=== PATIENT | female | born 1980 | race Caucasian/White ===

== ENCOUNTER 2024-01-02 19:06 | Emergency (ER) | payer OTHER, SELFPAY ==
[2024-01-02 19:17] VITALS: BP 116/72; PULSE 85; RESP 16; TEMP 36.6; O2SAT 100
--- NOTE | 2024-01-02 19:29 | ED.SKABFB ---
HPI - Skin/Abscess/Foreign Bdy General Chief complaint: Wound/Laceration Stated complaint: insect sting back of right leg Time Seen by Provider: 01/02/24 19:29 Source: patient Mode of arrival: ambulatory Limitations: no limitations History of Present Illness HPI narrative: 43-year-old female presents with complaint of wasps sting to left thigh. States she was stung 3 times. Complaining of itching and pain. Taking Benadryl with no relief of symptoms. All systems reviewed and negative except as noted above. Related Data Allergies Allergy/AdvReac Type Severity Reaction Status Date / Time No Known Allergies Allergy Verified 01/02/24 19:29 Review of Systems Review of Systems: CONSTITUTIONAL: Denies fever, chills, or sweats. EYES: Denies visual changes, redness, or discharge. ENT: Denies rhinorrhea, congestion, sore throat, or otalgia. CARDIOVASCULAR: Denies chest pain, palpitations, or edema. RESPIRATORY: Denies cough or dyspnea. GASTROINTESTINAL: Denies abdominal pain, nausea, vomiting, or diarrhea. GENITOURINARY: Denies dysuria or hematuria. SKIN: Denies rash . Reports itching, redness, swelling left thigh. MUSCULOSKELETAL: Denies back pain, joint pain, or myalgia. NEUROLOGIC: Denies headache, numbness, or weakness. PSYCHIATRIC: Denies anxiety or depression. All other systems reviewed are negative, except as documented in HPI. PMFSH Comments At time of signature, agree with nursing past medical, surgical, social and family history. There is no relevant family history pertinent to the presenting complaint. Exam Narrative: GENERAL: This is a well-nourished, well-developed patient, in no apparent distress. HEAD: normocephalic, atraumatic. EYES: PERRL. Sclera clear/white. Vision is grossly intact. EARS: External ears normal NOSE: External nose normal NECK: Neck supple, non-tender without lymphadenopathy, masses or thyromegaly. CARDIOVASCULAR: Regular rate and rhythm without murmurs, gallops, or rubs. RESPIRATORY: Clear to auscultation. Breath sounds equal bilaterally. No wheezes, rales, or rhonchi. SKIN: warm, Dry, intact with no suspicious lesions or rash, good texture and turgor. Wasp sting to posterior aspect of left thigh. Erythematous swollen. Approximate 23 x 13 cm. Warm to touch. NEURO: awake, alert, and oriented to person, place and time. There were no obvious focal neurologic abnormalities. EXTREMITIES: No joint tenderness, effusion, or edema noted. Course Course Level of Care: Express Care Visit Vital Signs Vital signs: Vital Signs Temperature 36.6 C 01/02/24 19:17 Pulse Rate 85 01/02/24 19:17 Respiratory Rate 16 01/02/24 19:17 Blood Pressure 116/72 01/02/24 19:17 Pulse Oximetry 100 01/02/24 19:17 Oxygen Delivery Room Air 01/02/24 19:17 Temperature 36.6 C 01/02/24 19:17 Pulse Rate 85 01/02/24 19:17 Respiratory Rate 16 01/02/24 19:17 Blood Pressure 116/72 01/02/24 19:17 Pulse Oximetry 100 01/02/24 19:17 Oxygen Delivery Room Air 01/02/24 19:17 Reviewed MDM - Skin/Abscess/Foreign Bdy MDM Narrative Medical decision making narrative: Patient is aware of diagnosis, understands and agrees to treatment plan. Anticipatory guidance given. Patient agrees to follow-up as directed and is aware of reasons to seek care at the emergency department. Portions of this record may have been created with voice recognition software Differential Diagnosis Differential diagnosis: Likely insect bites Discharge Plan Discharge Clinical Impression: Sting, wasp Qualifiers: Encounter type: initial encounter Injury intent: accidental or unintentional Qualified Code(s): T63.461A - Toxic effect of venom of wasps, accidental (unintentional), initial encounter Patient Disposition: Home, Self-Care Condition: Stable Instructions: Insect Bite or Sting (ED) Additional Instructions: Take prednisone as prescribed. Apply steroid cream 2 to 3 oliver
== END 2024-01-02 19:36 | disposition home or self-care (01) ==
PROVIDERS: Emergency Provider Nurse Practitioner Family
DX: T63.461A Toxic effect of venom of wasps, accidental (unintentional), initial encounter (principal)
CPT/HCPCS: 99203; G0463

== ENCOUNTER 2024-06-29 15:19 | Emergency (ER) | payer OTHER, SELFPAY ==
[2024-06-29 15:44] VITALS: BP 123/71; PULSE 85; RESP 16; TEMP 35.8; O2SAT 99
[2024-06-29 16:16] LABS: EDINFLUASCREEN Negative (Negative); EDINFLUBSCREEN Negative (Negative)
--- NOTE | 2024-06-29 16:16 | ED.URI ---
HPI - URI/Sore Throat General Chief Complaint: Upper Respiratory Infection Stated Complaint: sore throat/runny nose/covid exposure Time Seen by Provider: 06/29/24 16:16 Source: patient, RN notes reviewed and old records reviewed Mode of arrival: ambulatory Limitations: no limitations History of Present Illness HPI Narrative: Patient presents requesting COVID test because she has a runny nose and sore throat. She reports that her daughter that lives with her tested positive 3 times today at home. Patient has not been taking any medication for her symptoms. She is not in any distress Related Data Home Medications ?Medication ?Instructions ?Recorded ?Confirmed ?Last Taken ?Type No Home Medications 06/29/24 06/29/24 Unknown History Allergies Allergy/AdvReac Type Severity Reaction Status Date / Time No Known Allergies Allergy Verified 06/29/24 15:22 Review of Systems Review of Systems: All systems reviewed & are unremarkable except as noted in HPI and below Constitutional: Constitutional: Reports as per HPI and Reports no additional constitutional complaints ENT: Reports system reviewed and no additional complaints, except as documented, Reports nasal congestion, Reports nasal discharge and Reports sore throat Cardiovascular: Cardiovascular: Reports no additional cardiovascular complaints Respiratory: Respiratory: Reports no additional respiratory complaints Gastrointestinal: Gastrointestinal: Reports no additional gastrointestinal complaints PMFSH Comments At the time of my signature, I reviewed and agree with the nursing past medical, surgical, social, and family history. There is no relevant family history pertinent to the patient complaint. Exam Const: General: cooperative, no acute distress, alert and awake Orientation/consciousness: oriented to person, oriented to place and oriented to time HENMT: Head: normal to inspection Resp: Effort & Inspection: normal respiratory effort and able to speak in complete sentences Auscultation: clear to auscultation bilaterally, no crackles, no rales, no rhonchi and no wheezes Cardio: Palpation: normal PMI Rate: regular rate Rhythm: regular rhythm Heart sounds: S1 normal heart sound present and S2 normal heart sound present Neuro: General: oriented to person, oriented to place and oriented to time Cranial nerves: Yes CN's II-XII intact bilaterally Psych: Appearance: grossly normal Thought process: Normal thought process present Insight: Good insight present (Psych) Judgement: Good judgement present (Psych) Course Course Level of Care: Express Care Visit Vital Signs Vital signs: Vital Signs Temperature 96.4 F L 06/29/24 15:44 Pulse Rate 85 06/29/24 15:44 Respiratory Rate 16 06/29/24 15:44 Blood Pressure 123/71 06/29/24 15:44 Pulse Oximetry 99 06/29/24 15:44 Oxygen Delivery Room Air 06/29/24 15:44 Temperature 96.4 F L 06/29/24 15:44 Pulse Rate 85 06/29/24 15:44 Respiratory Rate 16 06/29/24 15:44 Blood Pressure 123/71 06/29/24 15:44 Pulse Oximetry 99 06/29/24 15:44 Oxygen Delivery Room Air 06/29/24 15:44 Reviewed MDM - URI/Sore Throat MDM Narrative Medical decision making narrative: Negative COVID, reassuring physical exam. Patient advised to treat symptoms Discharge instructions reviewed with patient, as well as provided in writing per nursing staff. The instructions also include specific and strict return/GO TO THE ER as well as f/u information. All questions have been answered, and the patient deny any further questions with discharge and discharge plan. Some parts of this dictation were generated by voice recognition software and may contain typographical and/or grammatical inaccuracies. Differential Diagnosis Differential diagnosis: Likely upper respiratory infection, otitis media, sinusitis, bronchitis, influenza and pharyngitis Medical Records Attestation: I reviewed the patient's medical records. Lab Data Attestation: I reviewed the patient's lab results. Labs: Lab Results 06/29/24 Range/Units 15:50 POC Influenza A Ag Negative (Negative) POC Influenza B Ag Negative (Negative) POC SARS CoV-2 Ag Positive (Negative) Discharge Plan Discharge Clinical Impression: Upper respiratory infection Patient Disposition: Home, Self-Care Condition: Stable Instructions: Antibiotic Form, Cold Symptoms (ED) Additional Instructions: Take [id number] medications per package instructions to treat her symptoms. Plenty of rest and fluids. Emergency department for new or worse symptoms Patient Language: K[place] Prescriptions: No Action No Home Medications Follow-up/Referrals: PHYSICIAN,CERTIFIED [employer] [Primary Care Provider] - Time of Disposition: 16:30
[2024-06-29 16:27] LABS: EDCOVIDSCREEN NEGATIVE (Negative)
== END 2024-06-29 16:40 | disposition home or self-care (01) ==
PROVIDERS: Emergency Provider Nurse Practitioner Family
DX: J06.9 Acute upper respiratory infection, unspecified (principal); Z20.822 Contact with and (suspected) exposure to COVID-19
CPT/HCPCS: 87426; 87804; 99212; G0463